=== PATIENT | female | born 1950 | race Two or more races ===

== ENCOUNTER 2017-03-24 18:26 | Emergency (ER) | payer OTHER, BC ==
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
[2017-03-24 19:18] LABS: CHLORIDE,CL 110 mmol/L (101-111); SODIUM,NA 147 mmol/L (135-145)
[2017-03-24] MEDS ORDERED: Acetaminophen 325 MG Tab PO ONE (19:42)
[2017-03-24] MEDS ORDERED: Cyclobenzaprine 10 MG Tab PO ONE ×2 (19:42→20:17)
[2017-03-24] MEDS ORDERED: Acetaminophen/oxyCODONE 325-5 MG Tab ONE (20:17)
[2017-03-24] MEDS ORDERED: Cyclobenzaprine 10 MG Tab ONE (20:17)
[2017-03-24] MEDS ORDERED: Acetaminophen/oxyCODONE 325-5 MG Tab PO ONE (20:17)
== END 2017-03-24 21:09 | disposition home or self-care (01) ==
LOC: DL.ED 18:26
DX: S33.5XXA Sprain of ligaments of lumbar spine, initial encounter (principal); S16.1XXA Strain of muscle, fascia and tendon at neck level, initial encounter; M54.6 Pain in thoracic spine; I10 Essential (primary) hypertension; E11.9 Type 2 diabetes mellitus without complications; Z98.84 Bariatric surgery status; Z79.82 Long term (current) use of aspirin; Z79.84 Long term (current) use of oral hypoglycemic drugs; Z79.899 Other long term (current) drug therapy; Z88.0 Allergy status to penicillin; Z91.018 Allergy to other foods; V43.52XA Car driver injured in collision with other type car in traffic accident, initial encounter
CPT/HCPCS: 36415; 72125; 72128; 72131; 73502; 80053; 81001; 85025; 99285; A9270

== ENCOUNTER 2018-10-14 21:58 | Emergency (ER) | payer MEDICARE, BC ==
--- NOTE | 2018-10-14 22:00 | EDM.PDOC ---
ED HPI GENERAL MEDICAL PROBLEM - General Stated Complaint: NOSE BLEED Time Seen by Provider: 10/14/18 22:05 Source of Information: Reports: Patient History Limitations: Reports: No Limitations - History of Present Illness INITIAL COMMENTS - FREE TEXT/NARRATIVE: ED with report of nosebleed for pat 1/2 hour, Heavier from right side, and large clots draining down back of throat. Not on blood thinner, No recent URI, Humidifier in house. Non smoker. No other sx. Has tried applying pressure but contiinues to bleed. Hx of "sinus problems. On nasal sray but does not use every day. - Related Data Allergies Allergy/AdvReac Type Severity Reaction Status Date / Time Penicillins Allergy Mild Rash Verified 10/14/18 22:03 mushrooms AdvReac Mild Rash Uncoded 10/14/18 22:03 Home Meds: Home Meds Aspirin [[place] Aspirin EC] 1 tab PO DAILY 03/24/17 [History] Diclofenac Sodium 1 applicful TOP ASDIRECTED PRN 03/24/17 [History] Fluticasone Propionate 1 spray INH ASDIRECTED PRN 03/24/17 [History] Omeprazole 1 tab PO DAILY 03/24/17 [History] glipiZIDE [Glipizide] 1 tab PO BID 03/24/17 [History] Metoprolol Succinate [Toprol Xl] 50 mg PO DAILY 10/14/18 [History] Vitamin B Complex 1 each PO DAILY 10/14/18 [History] Past Medical History HEENT History: Reports: Hard of Hearing, Impaired Vision Other HEENT History: wears glasses and getting a hearing aid, hasn't arrived yet Cardiovascular History: Reports: Hypertension Respiratory History: Reports: None Musculoskeletal History: Reports: Arthritis Endocrine/Metabolic History: Reports: Diabetes, Type II - Past Surgical History HEENT Surgical History: Reports: None Cardiovascular Surgical History: Reports: None GI Surgical History: Reports: Bariatric Procedure ED ROS ENT - Review of Systems Review Of Systems: ROS reveals no pertinent complaints other than HPI. Constitutional: Reports: Fever ED EXAM, ENT - Physical Exam Exam: See Below Exam Limited By: No Limitations General Appearance: Alert, Mild Distress Eye Exam: Bilateral Eye: EOMI Ears: Normal External Exam, Hearing Grossly Normal Nose: Other (active bleeding right nare) Mouth/Throat: Normal Inspection Head: Atraumatic, Normocephalic Respiratory/Chest: No Respiratory Distress, Lungs Clear, Normal Breath Sounds Cardiovascular: Regular Rate, Rhythm GI/Abdominal: Normal Bowel Sounds, Soft Neurological: Alert, Oriented, Normal Cognition Psychiatric: Normal Affect Skin: Warm, Dry, Intact, Normal Color ED ENT PROCEDURES - Epistaxis Procedure Indication: Epistaxis Recent anticoagulants/antiplatlets: No Uncontrolled HTN: No Recent septal/nasal surgery: No Site of bleeding: Right Nare Clearing of clots: Patient Blew Nose Ice pack to area: No Anterior Packing: Inflatable Nasal Tampon Complications: No Course - Vital Signs Last Recorded V/S: Last Vital Signs Temp 97.6 F 10/14/18 22:01 Pulse 71 10/14/18 22:01 Resp 18 10/14/18 22:01 BP 94/67 10/14/18 22:01 Pulse Ox 99 10/14/18 22:01 - Orders/Labs/Meds Labs: Laboratory Tests 10/14/18 10/14/18 Range/Units 22:46 22:46 WBC 5.3 (5.0-10.0) 10^3/uL RBC 4.52 (4.2-5.4) 10^6/uL Hgb 13.1 (12.0-16.0) g/dL Hct 40.0 (37.0-47.0) % MCV 88.5 D (80-100) fL MCH 29.0 (27.0-34.0) pg MCHC 32.8 L (33.0-35.0) g/dL Plt Count 196 (150-450) 10^3/uL Neut % (Auto) 58.8 (42.2-75.2) % Lymph % (Auto) 28.7 (20.5-50.1) % [place] % (Auto) 9.8 H (2-8) % Eos % (Auto) 1.9 (1.0-3.0) % Baso % (Auto) 0.8 (0.0-1.0) % Sodium 139 (135-145) mmol/L Potassium 3.4 L (3.6-5.0) mmol/L Chloride 103 (101-111) mmol/L Carbon Dioxide 26.0 (21.0-31.0) mmol/L Anion Gap 13.4 BUN 24 H (7-18) mg/dL Creatinine 1.0 (0.6-1.3) mg/dL Est Cr Clr Drug Dosing 52.50 mL/min Estimated GFR (MDRD) 56 BUN/Creatinine Ratio 24.00 Glucose 117 H (74-105) mg/dL Calcium 8.8 (8.4-10.2) mg/dl Total Bilirubin 0.5 (0.2-1.0) mg/dL AST 29 (10-42) IU/L ALT 21 (10-60) IU/L Alkaline Phosphatase 86 (42-121) IU/L Total Protein 6.7 (6.7-8.2) g/dl Albumin 3.7 (3.2-5.5) g/dl Globulin 3.0 Albumin/Globulin Ratio 1.23 - Re-Assessments/Exams Free Text/Narrative Re-Assessment/Exam: 10/21/18 03:34 Minimal change of bleeding with pressure. Bleeding from left nare resolved. Scant bleeding posterior pharynx. Nasal tampon placed with resolution. Tolerating well. Departure - Departure Time of Disposition: 23:59 Disposition: Home, Self-Care 01 Condition: Good Clinical Impression: Epistaxis not due to trauma - Discharge Information *PRESCRIPTION DRUG MONITORING PROGRAM REVIEWED*: Not Applicable *COPY OF PRESCRIPTION DRUG MONITORING REPORT IN PATIENT CARL: Not Applicable Instructions: Nosebleed, [id number] Referrals: PCP,None [Primary Care Provider] - Forms: ED Department Discharge Additional Instructions: humidification light activity follow up in am to have packing removed
[2018-10-14 22:03] VITALS: BP 94/67
[2018-10-14 23:13] LABS: ANION GAP 13.4
== END 2018-10-15 00:08 | disposition home or self-care (01) ==
LOC: DL.ED 21:58
DX: R04.0 Epistaxis (principal); I10 Essential (primary) hypertension; E11.9 Type 2 diabetes mellitus without complications; Z88.0 Allergy status to penicillin; Z91.018 Allergy to other foods; Z79.82 Long term (current) use of aspirin; Z79.899 Other long term (current) drug therapy; Z98.84 Bariatric surgery status
CPT/HCPCS: 30901; 36415; 80053; 85025; 99283

== ENCOUNTER 2019-08-03 22:43 | Emergency (ER) | payer MEDICARE, BC ==
[2019-08-03 22:48] VITALS: BP 159/64; PULSE 67
--- NOTE | 2019-08-03 23:20 | EDM.PDOC ---
ED HPI GENERAL MEDICAL PROBLEM - General Chief Complaint: ENT Problem Stated Complaint: BLOOD IN ear Time Seen by Provider: 08/03/19 23:05 Source of Information: Reports: Patient History Limitations: Reports: No Limitations - History of Present Illness INITIAL COMMENTS - FREE TEXT/NARRATIVE: cleaning wax from left ear then noticed blood, slight discomfort now none prior. No fever or chills . - Related Data Allergies Allergy/AdvReac Type Severity Reaction Status Date / Time Penicillins Allergy Mild Rash Verified 08/03/19 22:48 mushrooms AdvReac Mild Rash Uncoded 08/03/19 22:48 Home Meds: Home Meds Aspirin [[place] Aspirin EC] 1 tab PO DAILY 03/24/17 [History] Diclofenac Sodium 1 applicful TOP ASDIRECTED PRN 03/24/17 [History] Fluticasone Propionate 1 spray INH ASDIRECTED PRN 03/24/17 [History] Omeprazole 1 tab PO DAILY 03/24/17 [History] glipiZIDE [Glipizide] 1 tab PO BID 03/24/17 [History] Metoprolol Succinate [Toprol Xl] 50 mg PO DAILY 10/14/18 [History] Vitamin B Complex 1 each PO DAILY 10/14/18 [History] Past Medical History HEENT History: Reports: Hard of Hearing, Impaired Vision, Sinusitis Other HEENT History: wears glasses and getting a hearing aid, hasn't arrived yet Cardiovascular History: Reports: Hypertension Respiratory History: Reports: None 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: GERD 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: Musculoskeletal History: Reports: Arthritis Endocrine/Metabolic History: Reports: Diabetes, Type II - Infectious Disease History Infectious Disease History: Reports: Chicken Pox, Measles, Mumps - Past Surgical History HEENT Surgical History: Reports: None Cardiovascular Surgical History: Reports: None GI Surgical History: Reports: Bariatric Procedure Social & Family History - Tobacco Use Smoking Status *Q: Never Smoker Second Hand Smoke Exposure: No - Recreational Drug Use Recreational Drug Use: No ED ROS ENT - Review of Systems Review Of Systems: Comprehensive ROS is negative, except as noted in HPI. ED EXAM, ENT - Physical Exam Exam: See Below Exam Limited By: No Limitations General Appearance: Alert, No Apparent Distress Eye Exam: Bilateral Eye: EOMI, PERRL Ears: Normal External Exam, Hearing Grossly Normal, Normal TMs (right), Canal Blood, Canal Material Nose: Normal Inspection Mouth/Throat: Normal Inspection, Normal Lips Head: Atraumatic, Normocephalic Neck: No: Lymphadenopathy (L), Lymphadenopathy (R) Respiratory/Chest: No Respiratory Distress, Lungs Clear Cardiovascular: Normal Peripheral Pulses, Regular Rate, Rhythm Neurological: Alert, Oriented, Normal Cognition Skin: Warm, Dry Course - Vital Signs Last Recorded V/S: Last Vital Signs Temp 96.7 F 08/03/19 22:46 Pulse 67 08/03/19 22:46 Resp 16 08/03/19 22:46 BP 159/64 H 08/03/19 22:46 Pulse Ox 99 08/03/19 22:46 Departure - Departure Time of Disposition: 23:20 Disposition: Home, Self-Care 01 Condition: Good Clinical Impression: Otitis media, serous, TM rupture - Discharge Information *PRESCRIPTION DRUG MONITORING PROGRAM REVIEWED*: Not Applicable *COPY OF PRESCRIPTION DRUG MONITORING REPORT IN PATIENT CARL: Not Applicable Instructions: Ear Drops, Adult, [id number], Eardrum Perforation, [id number] Referrals: PCP,None [Primary Care Provider] - Forms: ED Department Discharge Additional Instructions: floxocin ear drops 10 2 times daily for 7 days recheck clinic 10-14 days limited hearing aid use on left side when using ear drops follow up fever chills avoid placing anything in ear canal Sepsis Event Note - Evaluation Sepsis Screening Result: No Definite Risk - Focused Exam Vital Signs: Vital Signs Temp Pulse Resp BP Pulse Ox 08/03/19 22:46 96.7 F 67 16 159/64 H 99 Date Exam was Performed: 08/04/19 Time Exam was Performed: 01:59
== END 2019-08-03 23:31 | disposition home or self-care (01) ==
LOC: DL.ED 22:43
DX: H65.92 Unspecified nonsuppurative otitis media, left ear (principal); H72.92 Unspecified perforation of tympanic membrane, left ear; I10 Essential (primary) hypertension; E11.9 Type 2 diabetes mellitus without complications; K21.9 Gastro-esophageal reflux disease without esophagitis; M19.90 Unspecified osteoarthritis, unspecified site; Z88.0 Allergy status to penicillin; Z91.018 Allergy to other foods; Z79.82 Long term (current) use of aspirin; Z79.899 Other long term (current) drug therapy; Z79.84 Long term (current) use of oral hypoglycemic drugs
CPT/HCPCS: 99282; 99283